=== PATIENT | female | born 1965 | race Caucasian/White ===

== ENCOUNTER 2017-03-26 05:56 | Day surgery (SDC) | payer OTHER ==
--- NOTE | 2017-03-20 12:24 | HP ---
DATE OF ADMISSION: DATE OF DICTATION: 03/18/2017 BRIEF HISTORY: This is a 51-year-old female who was undergoing a routine evaluation by Dr. Brannon for her non-Hodgkin lymphoma. At that time of that office visit, she mentioned that she had pain in the left groin with radiation to the left back at times. She also states she had a tingling/numbness sensation in the left groin. Dr. Brannon followed this complaint up with a CAT scan. The CT demonstrated an incarcerated left inguinal hernia containing fat. CT was performed at [facility]. No other obvious findings. The patient states her pain is episodic in nature and worst most at night. She has had no nausea, no vomiting, and no change in bowel habits. PAST MEDICAL HISTORY: The patient has had non-Hodgkin lymphoma. She has been in remission for the past 6 years, and she developed a bout of leukopenia during this time, at which point she was placed on Neupogen, and those issues resolved. Her last colonoscopy was done in February of 2017. 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 MEDICATION: Synthroid. ALLERGIES: None. SOCIAL HISTORY: Patient does not smoke nor drink. PHYSICAL EXAMINATION: Lungs: Clear. Heart: Regular rhythm. Abdomen: Obese, soft, nontender, nondistended. She has a crease in the lower pannus due to the obesity. There is no obvious mass noted in the right groin as well as the left, even though the CT demonstrates incarcerated left inguinal hernia. The physical exam is rather difficult due to the patient's body habitus. IMPRESSION/PLAN: Incarcerated left inguinal hernia: This is a 51-year-old female with an incarcerated left inguinal hernia based on CAT scan the incarcerated contents contain fat. The patient appears to be symptomatic at this time from the hernia and therefore I would recommend repair. We discussed the pros and cons of open versus laparoscopic. I think this patient would best be approached laparoscopically since doing an open repair would require the incision to be placed in the abdominal crease, thereby increasing infection. The patient will be scheduled for a laparoscopic left inguinal hernia repair with mesh, and due to her body habitus, the right side will be evaluated at the time of surgery as well. If an occult hernia is noted, it will be repaired. If no hernia is seen, a piece of mesh will be left in direct inguinal space for reinforcement. The indications, alternatives, and complications discussed, questions answered. Will plan to obtain written consent the day of surgery. ANTONIO GIBSON M.D. [id number] cc: MD Blayne Ramos MD, [address] [place] [address], [address], [place] [id number],
[2017-03-20 17:05] VITALS: BMI 35.6
[2017-03-26] MEDS ORDERED: MIDAZOLAM HCL 2 MG/2 ML SINGLE DOSE VIAL ONE (07:32)
[2017-03-26] MEDS ORDERED: BUPIVACAINE HCL/PF (5 MG/ML) 30 ML VIAL IJ ONE (07:32)
[2017-03-26] MEDS ORDERED: DEXAMETHASONE SOD PHOSPHATE/PF 10 MG/ML SDV ONE (07:32)
[2017-03-26] MEDS ORDERED: SUCCINYLCHOLINE CHLORIDE 200 MG/10 ML VIAL ONE (07:52)
[2017-03-26] MEDS ORDERED: ROCURONIUM BROMIDE 50 MG/5 ML VIAL ONE (07:52)
[2017-03-26] MEDS ORDERED: PROPOFOL 20 ML ONE ×3 (07:52→08:41)
[2017-03-26] MEDS ORDERED: ceFAZolin SODIUM 1 GM VIAL ONE (08:12)
[2017-03-26] MEDS ORDERED: ONDANSETRON 4 MG/2 ML VIAL ONE ×2 (08:14→09:05)
[2017-03-26] MEDS ORDERED: DEXAMETHASONE SOD PHOSPHATE 4 MG/1 ML VIAL ONE ×2 (08:14→09:05)
[2017-03-26] MEDS ORDERED: PHENYLEPHRINE HCL 10 MG/1 ML SINGLE DOSE VIAL ONE (08:33)
[2017-03-26] MEDS ORDERED: GLYCOPYRROLATE 0.2 MG/1 ML VIAL ONE (09:05)
[2017-03-26] MEDS ORDERED: NEOSTIGMINE METHYLSULFATE 0.5 MG/ML - 10 ML MDV ONE (09:05)
[2017-03-26] MEDS ORDERED: ONDANSETRON 4 MG/2 ML VIAL IVPUSH PRN (09:52)
[2017-03-26] MEDS ORDERED: LACTATED RINGERS SOLUTION 1,000 ML IV SCH (10:00)
[2017-03-26] MEDS ORDERED: oxyCODONE HCL 5 MG TABLET ONE ×2 (11:09→12:32)
[2017-03-26] MEDS: oxyCODONE HCL 5 MG TABLET PO PRN ×3 (11:20→12:35)
[2017-03-26 11:22] VITALS: TEMP 98.2
[2017-03-26 13:37] VITALS: BP 125/75; PULSE 88
--- NOTE | 2017-03-26 15:40 | OP ---
DATE OF OPERATION: 03/26/2017 PREOPERATIVE DIAGNOSIS: Incarcerated left inguinal hernia. POSTOPERATIVE DIAGNOSIS: 1. Incarcerated indirect left inguinal hernia. 2. Right indirect inguinal hernia. PROCEDURE: 1. Laparoscopic repair of incarcerated left inguinal hernia with mesh. 2. Laparoscopic repair of right indirect inguinal hernia with mesh. SURGEON: Tai Erickson MD ASSISTANT CASINO SHIFT MANAGER: Kael Olivo MD [employer] REPRESENTATIVE: Roxi Badillo MD (general) ESTIMATED BLOOD LOSS: Minimal. SPECIMEN: None. INDICATIONS FOR PROCEDURE: This is a 51-year-old female who presented to the office with a complaint of left groin pain. A CT scan confirmed an incarcerated left inguinal hernia containing fat. She is here today for repair. DESCRIPTION OF PROCEDURE: The patient was identified and appropriately positioned on the operating room table. After the placement of general anesthesia, the abdomen was prepped and draped in the usual sterile fashion with ChloraPrep. An infraumbilical incision was made deep into the subcutaneous tissue. The fascia of the rectus muscle on the left was identified, divided sharply, the muscle split under direct vision. A dissector balloon followed by a structural balloon placed. Also under direct visualization, a suprapubic 11-mm port was placed. The following structures on the left side were identified: The pubic tubercle, Alexandru ligament, inferior epigastric vessels, round ligament and lateral abdominal wall. During this dissection, the patient was noted to have attenuation of the direct inguinal floor but no obvious defect. She had a large indirect inguinal hernia containing fat. The fat was reduced back into the preperitoneal space with blunt dissection. The round ligament was isolated, clipped and then divided. A 4.5 x 6 piece of Versatex mesh was placed into the suprapubic port. The mesh was placed out laterally to cover the indirect defect. Laterally, the mesh was anchored to the anterior abdominal wall and lateral abdominal wall. Medially, the mesh covered the anterior attenuation and was anchored to the anterior abdominal wall, pubic tubercle and Alexandru ligament. Upon completion of the left side, a similar procedure on the right side was done. On the right side, the patient's dissection was incomplete and therefore, a 5-mm left lower quadrant PD port was placed under direct vision to perform the preperitoneal dissection. On the left side, once everything was identified, the round ligament was isolated, clipped and divided. On the left side, the patient was noted to have an indirect inguinal hernia, also containing fat. This fat was reduced back into the preperitoneal space. Another 4.5 x 6 piece of Versatex mesh was keyholed and placed through the superior port site. The mesh was wrapped around the cord structures laterally to reconstruct the internal ring. Laterally, the mesh was anchored to the anterior abdominal wall and lateral abdominal wall. There was good overlap of the mesh in the midline and the midline was anchored to the anterior abdominal wall, pubic tubercle, and Alexandru ligament. Upon completion of both sides, the operative field was examined and noted to be hemostatic. The ports were removed. The port sites were hemostatic. The fascia at the suprapubic port site and infraumbilical port site was reapproximated with interrupted 0 Vicryl suture. All skin was closed with 4-0 subcuticular Biosyn followed by Dermabond. At the conclusion of this case, sponge and needle counts were correct. ATTESTATION: Brief operative note handwritten on the preprinted form. [facility] will be queried prior to giving any narcotics. This will be done electronically. Gerardo LI [id number] cc: MAE CORRIGAN MD [facility]
== END 2017-03-26 13:30 | disposition home or self-care (01) ==
LOC: FASU 05:56
PROVIDERS: ATTEND Surgery
PROC: 0YUA4JZ Supplement Bilateral Inguinal Region with Synthetic Substitute, Percutaneous Endoscopic Approach (ICD-10-PCS; principal; 2017-03-26 08:27)
DX: K40.30 Unilateral inguinal hernia, with obstruction, without gangrene, not specified as recurrent (principal); K40.90 Unilateral inguinal hernia, without obstruction or gangrene, not specified as recurrent
CPT/HCPCS: 94760